=== PATIENT | male | born 1945 | race Hispanic/Latino ===

== ENCOUNTER → 2018-08-24 | Day surgery (SDC) | payer MEDICARE ==
[2018-08-22 10:58] LABS: BASOPHILS % 0.4 % (0.0-1.0); EOSINOPHILS # (AUTO) 0.2 (0.0-0.4); EOSINOPHILS % 3.3 % (0.0-6.0); HEMATOCRIT 42.9 % (38.2-49.6); HEMOGLOBIN 14.4 g/dL (14.0-18.0); LYMPHOCYTES # (AUTO) 0.8 (1.0-3.2); LYMPHOCYTES % 11.3 % (18.0-39.1); MEAN CORPUSCULAR HEMOGLOBIN 32.2 pg (28-32); MEAN CORPUSCULAR HGB CONC 33.6 g/dL (31-35); MONOCYTES # (AUTO) 0.6 (0.2-0.8); MONOCYTES % 8.4 % (4.4-11.3); NEUTROPHILS # (AUTO) 5.6 (2.1-6.9); NEUTROPHILS % 76.3 % (38.7-80.0); PLATELET COUNT 137 x10e3/uL (140-360); RED BLOOD COUNT 4.47 x10e6/uL (4.3-5.7); RED CELL DISTRIBUTION WIDTH 12.4 % (11.7-14.4)
[~2018-08-24] MED LIST: AMLODIPINE BESYL5 MG PO; ASPIRIN EC81 MG PO; AVODART0.5 MG PO; BACLOFEN10 MG PO; FUROSEMIDE40 MG PO; GABAPENTIN400 MG PO; ISOSORBIDE DINI20 MG PO; LOVASTATIN40 MG PO; MIDAZOLAM HCL 2 MG/2 ML VIAL ONE; OMEPRAZOLE40 MG PO; PLAVIX75 MG PO; PROPOFOL IV EMULSION 10 MG/ML 50 ML VIAL ONE; PROZAC20 MG PO; TRULANCE; ZESTRIL20 MG PO
[2018-08-24 08:15] VITALS: BP 132/76
== END | disposition home or self-care (01) ==
LOC: OR 05:29
PROVIDERS: ATTEND Internal Medicine Gastroenterology
DX: K59.00 Constipation, unspecified (principal); D12.3 Benign neoplasm of transverse colon; K57.30 Diverticulosis of large intestine without perforation or abscess without bleeding; K64.8 Other hemorrhoids; K44.9 Diaphragmatic hernia without obstruction or gangrene; K21.9 Gastro-esophageal reflux disease without esophagitis; Z71.3 Dietary counseling and surveillance; I10 Essential (primary) hypertension; E66.3 Overweight; J44.9 Chronic obstructive pulmonary disease, unspecified; F32.9 Major depressive disorder, single episode, unspecified; Z01.810 Encounter for preprocedural cardiovascular examination; Z01.812 Encounter for preprocedural laboratory examination; Z79.02 Long term (current) use of antithrombotics/antiplatelets; Z68.28 Body mass index [BMI] 28.0-28.9, adult; Z87.442 Personal history of urinary calculi
CPT/HCPCS: 36415; 45385; 85025; 88305; 93005; J2250; J2704

== ENCOUNTER → 2019-07-23 | Outpatient (CLI) | payer MEDICARE ==
[~2019-07-23] MED LIST changes: -MIDAZOLAM HCL 2 MG/2 ML VIAL ONE; -PROPOFOL IV EMULSION 10 MG/ML 50 ML VIAL ONE
--- NOTE | 2019-07-23 16:12 | Diagnostic Imaging Report ---
EXAMINATION: SP LUMBAR, COMPLETE MIN 4VW INDICATION: Back pain COMPARISON: None FINDINGS: No acute osseous injury. Vertebral body heights are maintained. Alignment appears anatomic. Moderate multilevel degenerative changes with disc space narrowing and osteophyte formation. No spondylolysis. Gaseous distention of the stomach and colon. No free air. IMPRESSION: No acute osseous injury. Moderate multilevel degenerative changes. Gaseous distention of the stomach and colon. Signed by: Angelina Braun MD on 07/23/2019 4:10 PM
== END ==
LOC: RAD 14:55
DX: M54.5 Low back pain (principal)
CPT/HCPCS: 72110

== ENCOUNTER → 2021-03-16 | Outpatient (CLI) | payer MEDICARE | LOC: MRI 12:43 | PROVIDERS: ATTEND Psychiatry & Neurology Neurology | DX: R41.3 Other amnesia (principal); R26.9 Unspecified abnormalities of gait and mobility | CPT/HCPCS: 70551 ==

== ENCOUNTER 2022-07-11 20:02 | Emergency (ER) | payer MEDICARE ==
[~2022-07-11] VITALS: Ht 177.8 cm; Wt 86.2 kg
[2022-07-11 21:04] LABS: BASOPHILS % 0.3 % (0.0-1.0); EOSINOPHILS # (AUTO) 0.2 (0.0-0.4); EOSINOPHILS % 2.1 % (0.0-6.0); HEMATOCRIT 45.8 % (38.2-49.6); HEMOGLOBIN 13.7 g/dL (14.0-18.0); LYMPHOCYTES # (AUTO) 1.4 (1.0-3.2); LYMPHOCYTES % 19.7 % (18.0-39.1); MEAN CORPUSCULAR HEMOGLOBIN 31.8 pg (28-32); MEAN CORPUSCULAR HGB CONC 29.9 g/dL (31-35); MEAN CORPUSCULAR VOLUME 106.3 fL (81-99); MONOCYTES # (AUTO) 0.8 (0.2-0.8); MONOCYTES % 11.7 % (4.4-11.3); NEUTROPHILS # (AUTO) 4.8 (2.1-6.9); NEUTROPHILS % 65.8 % (38.7-80.0); PLATELET COUNT 140 x10e3/uL (140-360); RED BLOOD COUNT 4.31 x10e6/uL (4.3-5.7); RED CELL DISTRIBUTION WIDTH 12.7 % (11.7-14.4)
[2022-07-11 21:26] LABS: ALBUMIN/GLOBULIN RATIO 1.1 (0.8-2.0); ALKALINE PHOSPHATASE 33 IU/L (40-150); ANION GAP 12.8 mmol/L (8-16); BLOOD UREA NITROGEN 16 mg/dL (7-26); BUN/CREATININE RATIO 11 (6-25); CALCIUM 9.5 mg/dL (8.4-10.2); CARBON DIOXIDE 35 mmol/L (22-29); CHLORIDE 102 mmol/L (98-107); CREATININE, SERUM 1.52 mg/dL (0.72-1.25); GLUCOSE 98 mg/dL (74-118); POTASSIUM 3.8 mmol/L (3.5-5.1); SODIUM 146 mmol/L (136-145)
[2022-07-11 21:30] LABS: CLARITY,URINE CLEAR (CLEAR); COLOR,URINE YELLOW (YELLOW)
[2022-07-11 21:31] LABS: KETONES,URINE NEGATIVE (NEGATIVE); LEUKOCYTE ESTERASE ,URINE NEGATIVE (NEGATIVE); NITRITE,URINE NEGATIVE (NEGATIVE); PROTEIN,URINE DIPSTICK NEGATIVE (NEGATIVE); URINE UROBILINOGEN 0.2 mg/dL (0.2 - 1)
[2022-07-11 21:32] LABS: ALANINE AMINOTRANSFERASE < 6 IU/L (0-55)
[2022-07-11 21:41] LABS: BACTERIA,URINE FEW /HPF; EPITHELIAL CELLS,URINE FEW /LPF; MUCUS,URINE MANY (RARE); RBC,URINE 0-5 /HPF (0-5); WBC,URINE (MAN) 0-5 /HPF (0-5)
[2022-07-11 21:46] LABS: CREATINE KINASE MB 1.3 ng/mL (0-5.0)
[2022-07-12 00:59] VITALS: BP 128/75
== END 2022-07-12 00:45 | disposition home or self-care (01) ==
LOC: ER 20:07
DX: R41.82 Altered mental status, unspecified (principal); F03.90 Unspecified dementia, unspecified severity, without behavioral disturbance, psychotic disturbance, mood disturbance, and anxiety; E78.5 Hyperlipidemia, unspecified; G62.9 Polyneuropathy, unspecified; G20 Parkinson's disease; F02.80 Dementia in other diseases classified elsewhere, unspecified severity, without behavioral disturbance, psychotic disturbance, mood disturbance, and anxiety; R94.31 Abnormal electrocardiogram [ECG] [EKG]
CPT/HCPCS: 36415; 70450; 71045; 80053; 81001; 82550; 82553; 84484; 85025; 93005; 94760; 99284

== ENCOUNTER 2022-07-14 07:59 | Emergency (ER) | payer MEDICARE ==
[~2022-07-14] VITALS: Ht 177.8 cm; Wt 86.2 kg
[2022-07-14] MEDS ORDERED: TETANUS/DIPHTHERIA TOX ADULT 0.5 ML SYR IM ONE (08:30)
== END 2022-07-14 09:48 | disposition home or self-care (01) ==
LOC: ER 08:03
DX: R53.1 Weakness (principal); S00.83XA Contusion of other part of head, initial encounter; E78.5 Hyperlipidemia, unspecified; G20 Parkinson's disease; F02.80 Dementia in other diseases classified elsewhere, unspecified severity, without behavioral disturbance, psychotic disturbance, mood disturbance, and anxiety; G62.9 Polyneuropathy, unspecified; Z91.81 History of falling
CPT/HCPCS: 70450; 72125; 99283

== ENCOUNTER 2022-07-14 15:41 | Emergency (ER) | payer MEDICARE, OTHER ==
[~2022-07-14] VITALS: Ht 177.8 cm; Wt 86.2 kg
== END 2022-07-14 17:50 | disposition home or self-care (01) ==
LOC: ER 15:52
DX: M25.552 Pain in left hip (principal); W18.39XA Other fall on same level, initial encounter; Y93.89 Activity, other specified; Y92.89 Other specified places as the place of occurrence of the external cause; G20 Parkinson's disease; F02.80 Dementia in other diseases classified elsewhere, unspecified severity, without behavioral disturbance, psychotic disturbance, mood disturbance, and anxiety; E78.5 Hyperlipidemia, unspecified; G62.9 Polyneuropathy, unspecified
CPT/HCPCS: 72192; 99283

== ENCOUNTER → 2022-08-05 | Outpatient (CLI) | payer MEDICARE | LOC: CARD 08:48 | PROVIDERS: ATTEND Family Medicine Adult Medicine | DX: I65.22 Occlusion and stenosis of left carotid artery (principal); I25.10 Atherosclerotic heart disease of native coronary artery without angina pectoris | CPT/HCPCS: 93880 ==

== ENCOUNTER 2022-10-05 10:11 | Inpatient (IN) | payer MEDICARE ==
[~2022-10-05] VITALS: Ht 177.8 cm; Wt 65.8 kg
[2022-10-05] MEDS ORDERED: TETANUS/DIPHTHERIA TOX ADULT 0.5 ML SYR IM ONE (10:45)
[2022-10-05 10:57] LABS: BASOPHILS % 0.2 % (0.0-1.0); HEMATOCRIT 45.6 % (38.2-49.6); HEMOGLOBIN 14.7 g/dL (14.0-18.0); LYMPHOCYTES # (AUTO) 0.4 (1.0-3.2); LYMPHOCYTES % 1.6 % (18.0-39.1); MEAN CORPUSCULAR HGB CONC 32.2 g/dL (31-35); MEAN CORPUSCULAR VOLUME 96.2 fL (81-99); MONOCYTES # (AUTO) 0.9 (0.2-0.8); NEUTROPHILS # (AUTO) 21.8 (2.1-6.9); NEUTROPHILS % 93.6 % (38.7-80.0); PLATELET COUNT 216 x10e3/uL (140-360); RED BLOOD COUNT 4.74 x10e6/uL (4.3-5.7); RED CELL DISTRIBUTION WIDTH 14.5 % (11.7-14.4)
[2022-10-05] MEDS ORDERED: BACITRACIN ZINC 0.9GM TP ONE (10:57)
[2022-10-05] MEDS ORDERED: LACTATED RINGER'S 1,000 ML IV ONE (11:00)
[2022-10-05] MEDS: BACITRACIN ZINC 15 GM OINT TOP SCH (11:03)
[2022-10-05 11:17] LABS: ALBUMIN 3.1 g/dL (3.5-5.0); ALBUMIN/GLOBULIN RATIO 0.9 (0.8-2.0); ALKALINE PHOSPHATASE 42 IU/L (40-150); ANION GAP 15.6 mmol/L (8-16); BLOOD UREA NITROGEN 16 mg/dL (7-26); BUN/CREATININE RATIO 12 (6-25); CALCIUM 10.1 mg/dL (8.4-10.2); CARBON DIOXIDE 35 mmol/L (22-29); CHLORIDE 100 mmol/L (98-107); CREATINE KINASE 109 IU/L (30-200); CREATININE, SERUM 1.32 mg/dL (0.72-1.25); GLUCOSE 178 mg/dL (74-118); POTASSIUM 3.6 mmol/L (3.5-5.1); SODIUM 147 mmol/L (136-145)
[2022-10-05 11:34] LABS: ALANINE AMINOTRANSFERASE < 6 IU/L (0-55)
[2022-10-05] MEDS ORDERED: Vancomycin IV 1 GM in SODIUM CHLORIDE 0.9% 250ML 250 ML IV STA (13:17)
[2022-10-05 13:25] LABS: BAND NEUTROPHILS % (MANUAL) 2 %; LYMPHOCYTES % (MANUAL) 1 % (19-48); MONOCYTES % (MANUAL) 3 % (3.4-9.0); NEUTROPHILS % (MANUAL) 93 % (40-74); PLATELET ESTIMATE ADEQUATE; PLATELET MORPHOLOGY COMMENT NORMAL; RBC MORPHOLOGY COMMENT NORMAL
[2022-10-05] MEDS ORDERED: SODIUM CHLORIDE FLUSH 10 ML SYR INJ PRN (13:30)
[2022-10-05] MEDS ORDERED: CEFEPIME 2 GM in SODIUM CHLORIDE 0.9% 100 ML IV ONE (13:30)
[2022-10-05 15:16] LABS: CLARITY,URINE SL CLOUDY (CLEAR); COLOR,URINE AMBER (YELLOW); KETONES,URINE TRACE (NEGATIVE); LEUKOCYTE ESTERASE ,URINE NEGATIVE (NEGATIVE); NITRITE,URINE NEGATIVE (NEGATIVE); PROTEIN,URINE DIPSTICK 2+ (NEGATIVE); URINE UROBILINOGEN 2 mg/dL (0.2 - 1)
[2022-10-05 15:18] VITALS: PULSE 73; RESP 20; O2SAT 99
[2022-10-05 15:27] LABS: AMORPHOUS SEDIMENT,URINE MODERATE (FEW); BACTERIA,URINE MODERATE /HPF; RBC,URINE 0-5 /HPF (0-5); WBC,URINE (MAN) 0-5 /HPF (0-5)
[2022-10-05] MEDS ORDERED: DEXTROSE 5%/0.45% SOD CHL 1,000 ML IV ONE (19:15)
[2022-10-05 19:36] LABS: CREATINE KINASE MB 1.4 ng/mL (0-5.0)
[2022-10-05 20:00] VITALS: BP 141/87; PULSE 77; RESP 19; TEMP 98.9; O2SAT 95
[2022-10-05 21:42] VITALS: BP 141/87; PULSE 77; RESP 19; TEMP 98.9; O2SAT 95
[2022-10-05 21:54] VITALS: BP 141/87; PULSE 77; RESP 19; TEMP 98.9; O2SAT 95
[2022-10-06] VITALS (11 sets, daily range): BP systolic 115–133; BP diastolic 56–65; PULSE 65–89; RESP 14–20; TEMP 97.5–98.8; O2SAT 92–98
[2022-10-06] MEDS ORDERED: FEROSUL325 MG PO (00:48)
[2022-10-06] MEDS ORDERED: ARICEPT10 MG PO (00:48)
[2022-10-06] MEDS ORDERED: MYRBETRIQ25 MG (00:48)
[2022-10-06] MEDS ORDERED: TRICOR145 MG PO (00:48)
[2022-10-06] MEDS ORDERED: LYRICA75 MG PO (00:48)
[2022-10-06] MEDS ORDERED: CYMBALTA30 MG (00:48)
[2022-10-06] MEDS ORDERED: NAMENDA10 MG PO (00:48)
[2022-10-06] MEDS ORDERED: SINEMET 25-1001 EACH PO (00:48)
[2022-10-06] MEDS ORDERED: ISOSORBIDE MONO20 MG PO (00:48)
[2022-10-06] MEDS: Vancomycin IV 1 GM in SODIUM CHLORIDE 0.9% 250ML 250 ML IV SCH ×3 (00:57→20:30)
[2022-10-06] MEDS: LACTATED RINGER'S 1,000 ML INJ SCH ×4 (00:58→20:30)
[2022-10-06 05:47] LABS: BASOPHILS % 0.1 % (0.0-1.0); EOSINOPHILS % 0.1 % (0.0-6.0); HEMATOCRIT 38.3 % (38.2-49.6); HEMOGLOBIN 12.6 g/dL (14.0-18.0); LYMPHOCYTES # (AUTO) 0.7 (1.0-3.2); LYMPHOCYTES % 4.4 % (18.0-39.1); MEAN CORPUSCULAR HEMOGLOBIN 30.9 pg (28-32); MEAN CORPUSCULAR HGB CONC 32.9 g/dL (31-35); MEAN CORPUSCULAR VOLUME 93.9 fL (81-99); MONOCYTES # (AUTO) 0.8 (0.2-0.8); MONOCYTES % 5.1 % (4.4-11.3); NEUTROPHILS # (AUTO) 14.2 (2.1-6.9); NEUTROPHILS % 89.9 % (38.7-80.0); PLATELET COUNT 175 x10e3/uL (140-360); RED BLOOD COUNT 4.08 x10e6/uL (4.3-5.7); RED CELL DISTRIBUTION WIDTH 13.9 % (11.7-14.4)
[2022-10-06 06:09] LABS: ALBUMIN 2.6 g/dL (3.5-5.0); ALBUMIN/GLOBULIN RATIO 0.9 (0.8-2.0); ANION GAP 10.1 mmol/L (8-16); CALCIUM 9.2 mg/dL (8.4-10.2); CHOL/HDL RATIO 2.7 (3.9-4.7); CREATININE, SERUM 0.83 mg/dL (0.72-1.25); POTASSIUM 3.1 mmol/L (3.5-5.1)
[2022-10-06 06:30] LABS: CREATINE KINASE MB 1.3 ng/mL (0-5.0)
[2022-10-06] MEDS: DRONABINOL 2.5MG PO SCH ×2 (08:03→17:05)
[2022-10-06] MEDS ORDERED: POTASSIUM CHLORIDE 20 MEQ TAB CR PO ONE (08:30)
[2022-10-06] MEDS ORDERED: ENOXAPARIN SOD INJ 40 MG/0.4 ML SYR SC SCH (09:00)
[2022-10-06] MEDS ORDERED: SENNA-S TABLET PO SCH (09:00)
[2022-10-06] MEDS: FENOFIBRATE 145 MG TAB PO SCH (09:15)
[2022-10-06] MEDS: CARBIDOPA/LEVODOPA 25/100 TAB PO SCH ×3 (09:15→20:30)
[2022-10-06] MEDS: DULOXETINE HCL 30 MG DELAYED RELEASE PO SCH (09:15)
[2022-10-06] MEDS: DUTASTERIDE 0.5 MG CAP PO SCH (09:15)
[2022-10-06] MEDS: FERROUS SULFATE 325 MG TAB PO SCH (09:15)
[2022-10-06] MEDS: MEMANTINE 10 MG TAB PO SCH ×2 (09:15→17:05)
[2022-10-06] MEDS ORDERED: HYDROCORTISONE 1% CREAM 30 GM TUBE TOP PRN (13:45)
[2022-10-07 04:24] VITALS: BP 134/69; PULSE 75; RESP 20; TEMP 98.5; O2SAT 96
[2022-10-07 05:00] LABS: BASOPHILS % 0.1 % (0.0-1.0); EOSINOPHILS % 0.3 % (0.0-6.0); HEMATOCRIT 35.4 % (38.2-49.6); HEMOGLOBIN 11.6 g/dL (14.0-18.0); LYMPHOCYTES # (AUTO) 0.6 (1.0-3.2); MEAN CORPUSCULAR HEMOGLOBIN 30.8 pg (28-32); MEAN CORPUSCULAR HGB CONC 32.8 g/dL (31-35); MEAN CORPUSCULAR VOLUME 93.9 fL (81-99); MONOCYTES # (AUTO) 0.6 (0.2-0.8); MONOCYTES % 5.1 % (4.4-11.3); NEUTROPHILS # (AUTO) 11.2 (2.1-6.9); NEUTROPHILS % 89.2 % (38.7-80.0); PLATELET COUNT 144 x10e3/uL (140-360); RED BLOOD COUNT 3.77 x10e6/uL (4.3-5.7); RED CELL DISTRIBUTION WIDTH 14.1 % (11.7-14.4)
[2022-10-07 05:30] LABS: ALBUMIN 2.3 g/dL (3.5-5.0); ALBUMIN/GLOBULIN RATIO 0.8 (0.8-2.0); ALKALINE PHOSPHATASE 32 IU/L (40-150); ANION GAP 10.2 mmol/L (8-16); BLOOD UREA NITROGEN 11 mg/dL (7-26); BUN/CREATININE RATIO 16 (6-25); CALCIUM 9.1 mg/dL (8.4-10.2); CARBON DIOXIDE 32 mmol/L (22-29); CHLORIDE 106 mmol/L (98-107); CREATININE, SERUM 0.68 mg/dL (0.72-1.25); GLUCOSE 102 mg/dL (74-118); POTASSIUM 3.2 mmol/L (3.5-5.1); SODIUM 145 mmol/L (136-145)
[2022-10-07] MEDS: LACTATED RINGER'S 1,000 ML INJ SCH ×3 (05:46→23:06)
[2022-10-07 06:05] LABS: ALANINE AMINOTRANSFERASE < 6 IU/L (0-55)
[2022-10-07 07:59] VITALS: BP 123/66; PULSE 70; RESP 21; TEMP 98; O2SAT 95
[2022-10-07] MEDS: DRONABINOL 2.5MG PO SCH ×2 (08:08→16:29)
[2022-10-07] MEDS ORDERED: BALSAM PERU/CASTOR OIL 60 GM OINT...G. TP SCH (09:00)
[2022-10-07] MEDS ORDERED: POLYETHYLENE GLYCOL 3350 17 GM PACK PO SCH (09:00)
[2022-10-07] MEDS ORDERED: POTASSIUM CHLORIDE 20 MEQ TAB CR PO ONE (09:00)
[2022-10-07] MEDS: FERROUS SULFATE 325 MG TAB PO SCH (09:03)
[2022-10-07] MEDS: CARBIDOPA/LEVODOPA 25/100 TAB PO SCH ×3 (09:03→20:22)
[2022-10-07] MEDS: DULOXETINE HCL 30 MG DELAYED RELEASE PO SCH (09:03)
[2022-10-07] MEDS: FENOFIBRATE 145 MG TAB PO SCH (09:03)
[2022-10-07] MEDS: MEMANTINE 10 MG TAB PO SCH ×2 (09:03→16:29)
[2022-10-07] MEDS: DUTASTERIDE 0.5 MG CAP PO SCH (09:03)
[2022-10-07 12:37] VITALS: BP 108/57; PULSE 68; RESP 16; TEMP 98.4; O2SAT 97
[2022-10-07] MEDS: VANCOMYCIN 1.25GM/250ML PREMIX 250 ML IV SCH ×2 (12:40→23:06)
[2022-10-07 16:26] VITALS: BP 135/78; PULSE 69; RESP 16; TEMP 98.1; O2SAT 97
[2022-10-07 17:59] VITALS: BP 135/78; PULSE 69; RESP 16; TEMP 98.1; O2SAT 97
[2022-10-07] MEDS: BACITRACIN ZINC 15 GM OINT TOP SCH (18:17)
[2022-10-07 20:00] VITALS: BP 123/66; PULSE 69; RESP 20; TEMP 97.5; O2SAT 97
[2022-10-08] VITALS (7 sets, daily range): BP systolic 114–146; BP diastolic 65–92; PULSE 65–81; RESP 15–19; TEMP 97.5–98.5; O2SAT 94–100
[2022-10-08 04:55] LABS: BASOPHILS % 0.2 % (0.0-1.0); EOSINOPHILS # (AUTO) 0.1 (0.0-0.4); EOSINOPHILS % 0.5 % (0.0-6.0); HEMATOCRIT 37.8 % (38.2-49.6); HEMOGLOBIN 12.3 g/dL (14.0-18.0); LYMPHOCYTES # (AUTO) 0.6 (1.0-3.2); LYMPHOCYTES % 5.3 % (18.0-39.1); MEAN CORPUSCULAR HEMOGLOBIN 30.8 pg (28-32); MEAN CORPUSCULAR HGB CONC 32.5 g/dL (31-35); MEAN CORPUSCULAR VOLUME 94.7 fL (81-99); MONOCYTES # (AUTO) 0.6 (0.2-0.8); MONOCYTES % 5.2 % (4.4-11.3); NEUTROPHILS # (AUTO) 10.6 (2.1-6.9); NEUTROPHILS % 88.4 % (38.7-80.0); PLATELET COUNT 136 x10e3/uL (140-360); RED BLOOD COUNT 3.99 x10e6/uL (4.3-5.7); RED CELL DISTRIBUTION WIDTH 14.2 % (11.7-14.4)
[2022-10-08 05:29] LABS: ALBUMIN 2.4 g/dL (3.5-5.0); ALBUMIN/GLOBULIN RATIO 0.8 (0.8-2.0); ALKALINE PHOSPHATASE 34 IU/L (40-150); ANION GAP 9.9 mmol/L (8-16); BLOOD UREA NITROGEN 8 mg/dL (7-26); BUN/CREATININE RATIO 13 (6-25); CALCIUM 9.3 mg/dL (8.4-10.2); CARBON DIOXIDE 33 mmol/L (22-29); CHLORIDE 105 mmol/L (98-107); CREATININE, SERUM 0.62 mg/dL (0.72-1.25); GLUCOSE 89 mg/dL (74-118); POTASSIUM 3.9 mmol/L (3.5-5.1); SODIUM 144 mmol/L (136-145)
[2022-10-08 05:36] LABS: ALANINE AMINOTRANSFERASE < 6 IU/L (0-55)
[2022-10-08] MEDS: LACTATED RINGER'S 1,000 ML INJ SCH ×3 (05:47→22:06)
[2022-10-08] MEDS: DRONABINOL 2.5MG PO SCH ×2 (09:47→17:17)
[2022-10-08] MEDS: DULOXETINE HCL 30 MG DELAYED RELEASE PO SCH (09:50)
[2022-10-08] MEDS: DUTASTERIDE 0.5 MG CAP PO SCH (09:50)
[2022-10-08] MEDS: CARBIDOPA/LEVODOPA 25/100 TAB PO SCH ×3 (09:51→20:23)
[2022-10-08] MEDS: MEMANTINE 10 MG TAB PO SCH ×2 (09:51→17:17)
[2022-10-08] MEDS: FERROUS SULFATE 325 MG TAB PO SCH (09:51)
[2022-10-08] MEDS: FENOFIBRATE 145 MG TAB PO SCH (13:24)
[2022-10-08] MEDS: VANCOMYCIN 1.25GM/250ML PREMIX 250 ML IV SCH (13:24)
[2022-10-08] MEDS ORDERED: CITRATE OF MAGNESIA 300ML BOTTLE PO ONE (16:55)
[2022-10-08] MEDS: BACITRACIN ZINC 15 GM OINT TOP SCH (20:24)
[2022-10-08] MEDS: BALSAM PERU/CASTOR OIL 60 GM OINT...G. TP SCH (22:45)
[2022-10-09] VITALS (8 sets, daily range): BP systolic 105–156; BP diastolic 72–82; PULSE 68–76; RESP 15–18; TEMP 97.1–98.7; O2SAT 97–99
[2022-10-09] MEDS: VANCOMYCIN 1.25GM/250ML PREMIX 250 ML IV SCH ×3 (01:34→22:54)
[2022-10-09] MEDS: LACTATED RINGER'S 1,000 ML INJ SCH ×3 (05:18→17:29)
[2022-10-09 09:08] LABS: BASOPHILS % 0.2 % (0.0-1.0); EOSINOPHILS # (AUTO) 0.1 (0.0-0.4); EOSINOPHILS % 0.8 % (0.0-6.0); HEMATOCRIT 37.5 % (38.2-49.6); LYMPHOCYTES # (AUTO) 0.6 (1.0-3.2); LYMPHOCYTES % 5.1 % (18.0-39.1); MEAN CORPUSCULAR HEMOGLOBIN 30.5 pg (28-32); MEAN CORPUSCULAR VOLUME 95.2 fL (81-99); MONOCYTES # (AUTO) 0.7 (0.2-0.8); MONOCYTES % 5.6 % (4.4-11.3); NEUTROPHILS # (AUTO) 10.6 (2.1-6.9); NEUTROPHILS % 87.8 % (38.7-80.0); PLATELET COUNT 178 x10e3/uL (140-360); RED BLOOD COUNT 3.94 x10e6/uL (4.3-5.7); RED CELL DISTRIBUTION WIDTH 13.9 % (11.7-14.4)
[2022-10-09 09:32] LABS: ALBUMIN 2.6 g/dL (3.5-5.0); ALBUMIN/GLOBULIN RATIO 0.8 (0.8-2.0); ALKALINE PHOSPHATASE 36 IU/L (40-150); ANION GAP 10.4 mmol/L (8-16); BLOOD UREA NITROGEN 8 mg/dL (7-26); BUN/CREATININE RATIO 12 (6-25); CALCIUM 9.4 mg/dL (8.4-10.2); CARBON DIOXIDE 36 mmol/L (22-29); CHLORIDE 100 mmol/L (98-107); CREATININE, SERUM 0.69 mg/dL (0.72-1.25); GLUCOSE 100 mg/dL (74-118); POTASSIUM 3.4 mmol/L (3.5-5.1); SODIUM 143 mmol/L (136-145)
[2022-10-09 09:35] LABS: ALANINE AMINOTRANSFERASE < 6 IU/L (0-55)
[2022-10-09] MEDS: MEMANTINE 10 MG TAB PO SCH ×2 (09:39→17:24)
[2022-10-09] MEDS: DRONABINOL 2.5MG PO SCH ×2 (09:39→17:24)
[2022-10-09] MEDS: DULOXETINE HCL 30 MG DELAYED RELEASE PO SCH (09:39)
[2022-10-09] MEDS: CARBIDOPA/LEVODOPA 25/100 TAB PO SCH ×3 (09:39→20:17)
[2022-10-09] MEDS: DUTASTERIDE 0.5 MG CAP PO SCH (09:39)
[2022-10-09] MEDS: FERROUS SULFATE 325 MG TAB PO SCH (09:39)
[2022-10-09] MEDS ORDERED: POTASSIUM CHLORIDE 10MEQ EA PO ONE (11:30)
[2022-10-09] MEDS: FENOFIBRATE 145 MG TAB PO SCH (12:46)
[2022-10-09] MEDS ORDERED: CITRATE OF MAGNESIA 300ML BOTTLE PO ONE (18:45)
[2022-10-09] MEDS: BACITRACIN ZINC 15 GM OINT TOP SCH (20:18)
[2022-10-09] MEDS: BALSAM PERU/CASTOR OIL 60 GM OINT...G. TP SCH (20:18)
[2022-10-10] VITALS (9 sets, daily range): BP systolic 132–147; BP diastolic 65–81; PULSE 67–80; RESP 15–18; TEMP 97.3–98; O2SAT 95–100
[2022-10-10] MEDS: LACTATED RINGER'S 1,000 ML INJ SCH (05:14)
[2022-10-10 05:48] LABS: BASOPHILS % 0.4 % (0.0-1.0); EOSINOPHILS # (AUTO) 0.1 (0.0-0.4); EOSINOPHILS % 0.8 % (0.0-6.0); HEMATOCRIT 37.1 % (38.2-49.6); HEMOGLOBIN 11.9 g/dL (14.0-18.0); LYMPHOCYTES # (AUTO) 0.7 (1.0-3.2); LYMPHOCYTES % 6.2 % (18.0-39.1); MEAN CORPUSCULAR HEMOGLOBIN 30.7 pg (28-32); MEAN CORPUSCULAR HGB CONC 32.1 g/dL (31-35); MEAN CORPUSCULAR VOLUME 95.9 fL (81-99); MONOCYTES # (AUTO) 0.8 (0.2-0.8); NEUTROPHILS # (AUTO) 9.7 (2.1-6.9); NEUTROPHILS % 85.1 % (38.7-80.0); PLATELET COUNT 184 x10e3/uL (140-360); RED BLOOD COUNT 3.87 x10e6/uL (4.3-5.7)
[2022-10-10 06:07] LABS: ANION GAP 9.9 mmol/L (8-16); POTASSIUM 3.9 mmol/L (3.5-5.1)
[2022-10-10 07:08] LABS: CREATININE, SERUM 0.64 mg/dL (0.72-1.25)
[2022-10-10] MEDS ORDERED: CITRATE OF MAGNESIA 300ML BOTTLE PO ONE (09:45)
[2022-10-10] MEDS: FERROUS SULFATE 325 MG TAB PO SCH (09:58)
[2022-10-10] MEDS: DRONABINOL 2.5MG PO SCH ×2 (09:58→16:32)
[2022-10-10] MEDS: MEMANTINE 10 MG TAB PO SCH ×2 (09:58→16:32)
[2022-10-10] MEDS: CARBIDOPA/LEVODOPA 25/100 TAB PO SCH ×3 (09:58→22:15)
[2022-10-10] MEDS: DULOXETINE HCL 30 MG DELAYED RELEASE PO SCH (09:58)
[2022-10-10] MEDS: DUTASTERIDE 0.5 MG CAP PO SCH (09:58)
[2022-10-10] MEDS ORDERED: FUROSEMIDE INJ 10 MG/ML 4 ML VIAL IV ONE (10:30)
[2022-10-10] MEDS: FAMOTIDINE 20 MG TAB PO SCH ×2 (10:41→16:32)
[2022-10-10] MEDS: VANCOMYCIN 1.25GM/250ML PREMIX 250 ML IV SCH (12:32)
[2022-10-10] MEDS: FENOFIBRATE 145 MG TAB PO SCH (12:32)
[2022-10-10] MEDS: BACITRACIN ZINC 15 GM OINT TOP SCH (21:00)
[2022-10-10] MEDS: BALSAM PERU/CASTOR OIL 60 GM OINT...G. TP SCH (22:14)
[2022-10-11] VITALS (8 sets, daily range): BP systolic 127–144; BP diastolic 60–73; PULSE 67–88; RESP 16–20; TEMP 97.5–98.3; O2SAT 96–99
[2022-10-11] MEDS: VANCOMYCIN 1.25GM/250ML PREMIX 250 ML IV SCH
[2022-10-11 05:32] LABS: BASOPHILS % 0.4 % (0.0-1.0); EOSINOPHILS # (AUTO) 0.1 (0.0-0.4); HEMATOCRIT 38.3 % (38.2-49.6); HEMOGLOBIN 12.2 g/dL (14.0-18.0); LYMPHOCYTES # (AUTO) 0.8 (1.0-3.2); LYMPHOCYTES % 7.3 % (18.0-39.1); MEAN CORPUSCULAR HEMOGLOBIN 30.7 pg (28-32); MEAN CORPUSCULAR HGB CONC 31.9 g/dL (31-35); MEAN CORPUSCULAR VOLUME 96.2 fL (81-99); MONOCYTES # (AUTO) 0.8 (0.2-0.8); MONOCYTES % 7.3 % (4.4-11.3); NEUTROPHILS # (AUTO) 8.8 (2.1-6.9); NEUTROPHILS % 83.6 % (38.7-80.0); PLATELET COUNT 185 x10e3/uL (140-360); RED BLOOD COUNT 3.98 x10e6/uL (4.3-5.7); RED CELL DISTRIBUTION WIDTH 14.4 % (11.7-14.4)
[2022-10-11 06:18] LABS: ALBUMIN 2.6 g/dL (3.5-5.0); ALBUMIN/GLOBULIN RATIO 0.8 (0.8-2.0); ANION GAP 9.5 mmol/L (8-16); CALCIUM 9.1 mg/dL (8.4-10.2); CREATININE, SERUM 0.69 mg/dL (0.72-1.25); POTASSIUM 3.5 mmol/L (3.5-5.1)
[2022-10-11] MEDS: DRONABINOL 2.5MG PO SCH ×2 (07:49→17:17)
[2022-10-11] MEDS: FAMOTIDINE 20 MG TAB PO SCH ×2 (07:49→17:17)
[2022-10-11] MEDS: DULOXETINE HCL 30 MG DELAYED RELEASE PO SCH (09:28)
[2022-10-11] MEDS: FERROUS SULFATE 325 MG TAB PO SCH (09:28)
[2022-10-11] MEDS ORDERED: IOPAMIDOL 370 MG/ML 100 ML INFUS..BTL INJ ONE (09:28)
[2022-10-11] MEDS: MEMANTINE 10 MG TAB PO SCH ×2 (09:28→17:17)
[2022-10-11] MEDS: FENOFIBRATE 145 MG TAB PO SCH (09:28)
[2022-10-11] MEDS: CARBIDOPA/LEVODOPA 25/100 TAB PO SCH ×3 (09:28→21:45)
[2022-10-11] MEDS: DUTASTERIDE 0.5 MG CAP PO SCH (09:28)
[2022-10-11] MEDS: Vancomycin IV 1 GM in SODIUM CHLORIDE 0.9% 250ML 250 ML IV SCH (12:06)
[2022-10-11] MEDS: BACITRACIN ZINC 15 GM OINT TOP SCH (21:00)
[2022-10-11] MEDS: BALSAM PERU/CASTOR OIL 60 GM OINT...G. TP SCH (21:45)
[2022-10-12] VITALS (7 sets, daily range): BP systolic 120–168; BP diastolic 67–100; PULSE 51–72; RESP 16–19; TEMP 97.2–98.1; O2SAT 96–99
[2022-10-12] MEDS: Vancomycin IV 1 GM in SODIUM CHLORIDE 0.9% 250ML 250 ML IV SCH ×2 (00:54→13:00)
[2022-10-12 05:01] LABS: BASOPHILS % 0.4 % (0.0-1.0); EOSINOPHILS # (AUTO) 0.1 (0.0-0.4); EOSINOPHILS % 1.3 % (0.0-6.0); HEMATOCRIT 36.9 % (38.2-49.6); LYMPHOCYTES # (AUTO) 0.7 (1.0-3.2); MEAN CORPUSCULAR HEMOGLOBIN 30.9 pg (28-32); MEAN CORPUSCULAR HGB CONC 32.5 g/dL (31-35); MEAN CORPUSCULAR VOLUME 95.1 fL (81-99); MONOCYTES # (AUTO) 0.8 (0.2-0.8); MONOCYTES % 7.1 % (4.4-11.3); NEUTROPHILS # (AUTO) 9.2 (2.1-6.9); NEUTROPHILS % 84.7 % (38.7-80.0); PLATELET COUNT 187 x10e3/uL (140-360); RED BLOOD COUNT 3.88 x10e6/uL (4.3-5.7); RED CELL DISTRIBUTION WIDTH 14.6 % (11.7-14.4)
[2022-10-12 05:21] LABS: ALBUMIN 2.6 g/dL (3.5-5.0); ALBUMIN/GLOBULIN RATIO 0.8 (0.8-2.0); ANION GAP 9.3 mmol/L (8-16); CALCIUM 9.1 mg/dL (8.4-10.2); CREATININE, SERUM 0.86 mg/dL (0.72-1.25); POTASSIUM 3.3 mmol/L (3.5-5.1)
[2022-10-12] MEDS: DRONABINOL 2.5MG PO SCH ×2 (08:21→17:30)
[2022-10-12] MEDS: FAMOTIDINE 20 MG TAB PO SCH ×2 (08:21→17:30)
[2022-10-12] MEDS ORDERED: POTASSIUM CHLORIDE 20 MEQ TAB CR PO ONE (09:30)
[2022-10-12] MEDS: DULOXETINE HCL 30 MG DELAYED RELEASE PO SCH (09:52)
[2022-10-12] MEDS: DUTASTERIDE 0.5 MG CAP PO SCH (09:52)
[2022-10-12] MEDS: FENOFIBRATE 145 MG TAB PO SCH (09:53)
[2022-10-12] MEDS: FERROUS SULFATE 325 MG TAB PO SCH (09:54)
[2022-10-12] MEDS: MEMANTINE 10 MG TAB PO SCH ×2 (09:54→17:30)
[2022-10-12] MEDS: CARBIDOPA/LEVODOPA 25/100 TAB PO SCH ×3 (09:54→21:11)
[2022-10-12] MEDS ORDERED: SODIUM CHLORIDE 0.9% 250ML 250 ML ONE (10:10)
[2022-10-12] MEDS: BALSAM PERU/CASTOR OIL 60 GM OINT...G. TP SCH (21:11)
[2022-10-12] MEDS: BACITRACIN ZINC 15 GM OINT TOP SCH (21:11)
[2022-10-13 04:00] VITALS: BP 132/67; PULSE 70; RESP 16; TEMP 97.9; O2SAT 100
[2022-10-13 05:00] LABS: BASOPHILS # (AUTO) 0.1 (0.0-0.1); BASOPHILS % 0.5 % (0.0-1.0); EOSINOPHILS # (AUTO) 0.2 (0.0-0.4); EOSINOPHILS % 1.6 % (0.0-6.0); HEMATOCRIT 38.1 % (38.2-49.6); HEMOGLOBIN 11.9 g/dL (14.0-18.0); LYMPHOCYTES # (AUTO) 0.7 (1.0-3.2); LYMPHOCYTES % 7.5 % (18.0-39.1); MEAN CORPUSCULAR HEMOGLOBIN 30.4 pg (28-32); MEAN CORPUSCULAR HGB CONC 31.2 g/dL (31-35); MEAN CORPUSCULAR VOLUME 97.2 fL (81-99); MONOCYTES # (AUTO) 0.7 (0.2-0.8); MONOCYTES % 7.5 % (4.4-11.3); NEUTROPHILS # (AUTO) 7.9 (2.1-6.9); NEUTROPHILS % 82.5 % (38.7-80.0); PLATELET COUNT 176 x10e3/uL (140-360); RED BLOOD COUNT 3.92 x10e6/uL (4.3-5.7); RED CELL DISTRIBUTION WIDTH 14.5 % (11.7-14.4)
[2022-10-13 05:27] LABS: ALBUMIN 2.7 g/dL (3.5-5.0); ALBUMIN/GLOBULIN RATIO 0.9 (0.8-2.0); ANION GAP 9.6 mmol/L (8-16); CALCIUM 9.2 mg/dL (8.4-10.2); CREATININE, SERUM 0.87 mg/dL (0.72-1.25); POTASSIUM 3.6 mmol/L (3.5-5.1)
[2022-10-13] MEDS ORDERED: DEXTROSE 5%/0.45% SOD CHL 1,000 ML IV ONE (07:00)
[2022-10-13] MEDS: FAMOTIDINE 20 MG TAB PO SCH ×2 (07:30→16:30)
[2022-10-13 08:00] VITALS: BP 143/67; PULSE 64; RESP 18; TEMP 97.6; O2SAT 94
[2022-10-13 08:18] VITALS: BP 143/67; PULSE 64; RESP 18; TEMP 97.6; O2SAT 94
[2022-10-13] MEDS: DUTASTERIDE 0.5 MG CAP PO SCH (09:00)
[2022-10-13] MEDS: CARBIDOPA/LEVODOPA 25/100 TAB PO SCH ×3 (09:00→20:32)
[2022-10-13] MEDS: DULOXETINE HCL 30 MG DELAYED RELEASE PO SCH (09:00)
[2022-10-13] MEDS: FENOFIBRATE 145 MG TAB PO SCH (09:00)
[2022-10-13] MEDS: MEMANTINE 10 MG TAB PO SCH ×2 (09:00→17:00)
[2022-10-13] MEDS: FERROUS SULFATE 325 MG TAB PO SCH (09:00)
[2022-10-13 12:54] VITALS: BP 151/75; PULSE 66; RESP 18; TEMP 97.5; O2SAT 96
[2022-10-13 20:00] VITALS: BP 121/80; PULSE 67; RESP 18; TEMP 97.4; O2SAT 98
[2022-10-13] MEDS: BALSAM PERU/CASTOR OIL 60 GM OINT...G. TP SCH (20:32)
[2022-10-13 21:24] VITALS: BP 121/80; PULSE 67; RESP 18; TEMP 97.4; O2SAT 98
[2022-10-14] VITALS (8 sets, daily range): BP systolic 107–149; BP diastolic 63–76; PULSE 64–76; RESP 16–20; TEMP 97.3–98; O2SAT 94–100
[2022-10-14 04:58] LABS: BASOPHILS # (AUTO) 0.1 (0.0-0.1); BASOPHILS % 0.7 % (0.0-1.0); EOSINOPHILS # (AUTO) 0.2 (0.0-0.4); EOSINOPHILS % 1.7 % (0.0-6.0); HEMATOCRIT 40.3 % (38.2-49.6); HEMOGLOBIN 12.5 g/dL (14.0-18.0); LYMPHOCYTES # (AUTO) 0.9 (1.0-3.2); LYMPHOCYTES % 9.5 % (18.0-39.1); MEAN CORPUSCULAR HEMOGLOBIN 30.5 pg (28-32); MEAN CORPUSCULAR VOLUME 98.3 fL (81-99); MONOCYTES # (AUTO) 0.7 (0.2-0.8); MONOCYTES % 7.7 % (4.4-11.3); NEUTROPHILS # (AUTO) 7.5 (2.1-6.9); PLATELET COUNT 180 x10e3/uL (140-360); RED CELL DISTRIBUTION WIDTH 14.6 % (11.7-14.4)
[2022-10-14 05:22] LABS: ALBUMIN 2.7 g/dL (3.5-5.0); ALBUMIN/GLOBULIN RATIO 0.8 (0.8-2.0); ANION GAP 9.5 mmol/L (8-16); CALCIUM 9.4 mg/dL (8.4-10.2); CREATININE, SERUM 0.8 mg/dL (0.72-1.25); MAGNESIUM 1.9 MG/DL (1.3-2.1); PHOSPHORUS 2.4 MG/DL (2.3-4.7); POTASSIUM 3.5 mmol/L (3.5-5.1)
[2022-10-14] MEDS ORDERED: DEXTROSE 5% 1,000 ML IV ONE ×3 (08:15→16:15)
[2022-10-14] MEDS: MEMANTINE 10 MG TAB PO SCH ×2 (08:47→18:04)
[2022-10-14] MEDS: DUTASTERIDE 0.5 MG CAP PO SCH (08:47)
[2022-10-14] MEDS: CARBIDOPA/LEVODOPA 25/100 TAB PO SCH ×2 (08:47→15:55)
[2022-10-14] MEDS: FENOFIBRATE 145 MG TAB PO SCH (08:47)
[2022-10-14] MEDS: DULOXETINE HCL 30 MG DELAYED RELEASE PO SCH (08:48)
[2022-10-14] MEDS: FERROUS SULFATE 325 MG TAB PO SCH (08:48)
[2022-10-14] MEDS: FAMOTIDINE 20 MG TAB PO SCH ×2 (08:48→18:04)
[2022-10-14] MEDS: CIPROFLOXACIN 500 MG TAB PO SCH ×2 (08:52→18:04)
[2022-10-14] MEDS ORDERED: METRONIDAZOLE 500 MG TAB PO SCH (14:00)
[2022-10-14 18:54] LABS: ANION GAP 12.8 mmol/L (8-16); CALCIUM 9.6 mg/dL (8.4-10.2); CREATININE, SERUM 0.83 mg/dL (0.72-1.25); POTASSIUM 3.8 mmol/L (3.5-5.1)
== END 2022-10-14 20:52 | disposition home or self-care (01) | DRG 682 ==
LOC: ER 10:17 → ERHOLD 13:33 → MED/SURG 19:54
PROVIDERS: ADMIT Family Medicine Adult Medicine; ATTEND Family Medicine Adult Medicine
DX: N17.9 Acute kidney failure, unspecified (principal); E43 Unspecified severe protein-calorie malnutrition; N39.0 Urinary tract infection, site not specified; E87.3 Alkalosis; E87.0 Hyperosmolality and hypernatremia; K86.2 Cyst of pancreas; I50.32 Chronic diastolic (congestive) heart failure; G20 Parkinson's disease; Z91.81 History of falling; I25.10 Atherosclerotic heart disease of native coronary artery without angina pectoris; E86.0 Dehydration; G62.9 Polyneuropathy, unspecified; E83.51 Hypocalcemia; D69.6 Thrombocytopenia, unspecified; N39.46 Mixed incontinence; N40.1 Benign prostatic hyperplasia with lower urinary tract symptoms; R33.8 Other retention of urine; F32.A Depression, unspecified; K80.20 Calculus of gallbladder without cholecystitis without obstruction; N28.89 Other specified disorders of kidney and ureter; E78.5 Hyperlipidemia, unspecified; Z66 Do not resuscitate; F02.80 Dementia in other diseases classified elsewhere, unspecified severity, without behavioral disturbance, psychotic disturbance, mood disturbance, and anxiety; I11.0 Hypertensive heart disease with heart failure; Z68.20 Body mass index [BMI] 20.0-20.9, adult; L89.152 Pressure ulcer of sacral region, stage 2; S09.90XA Unspecified injury of head, initial encounter; W19.XXXA Unspecified fall, initial encounter; Y92.019 Unspecified place in single-family (private) house as the place of occurrence of the external cause; N31.8 Other neuromuscular dysfunction of bladder
CPT/HCPCS: 0223U; 36415; 70450; 71045; 71250; 72125; 74018; 74176; 74178; 74230; 78227; 80048; 80053; 80061; 80202; 81001; 82550; 82553; 83605; 83735; 83880; 84100; 84443; 84484; 85025; 87040; 87086; 90714; 93005; 93306; 94799; 99252; 99284; A9537; J0692; J1940; J2543; J7050; J7070; Q9967